=== PATIENT | male | born 1960 | race Caucasian/White ===

== ENCOUNTER 2017-08-23 09:35 | Emergency (ER) | payer OTHER ==
[2017-08-23] MEDS ORDERED: ONDANSETRON HCL/PF 2 MG/ML VIAL IV ONE (10:01)
[2017-08-23] MEDS ORDERED: KETOROLAC TROMETHAMINE 30 MG/ML VIAL IV ONE (10:02)
[2017-08-23] MEDS ORDERED: ONDANSETRON HCL/PF 2 MG/ML VIAL ONE (10:07)
[2017-08-23] MEDS ORDERED: KETOROLAC TROMETHAMINE 30 MG/ML VIAL ONE (10:07)
--- NOTE | 2017-08-23 10:07 | ERNOTE ---
Abdominal HPI - General Chief Complaint: Abdominal Pain Time Seen by Provider: 08/23/17 09:53 Source: patient Exam Limitations: no limitations - Immun/Allergies/Home Medications Immunizatons: IMMUNIZATION HX History of Influenza Vaccine No Hx Pneumococcal Vaccination No Allergies/Adverse Reactions: Allergies No Known Allergies Allergy (Verified 08/23/17 09:42) Home Medications: HOME MEDICATIONS Levothyroxine Sodium [Synthroid] 200 mcg PO DAILY 12/11/14 [Last Taken Unknown] Pantoprazole Sodium [Protonix] 40 mg PO DAILY 07/25/15 [Last Taken Unknown] Ibuprofen [Motrin] 600 mg PO Q6H PRN #40 tab 09/04/15 [Last Taken Unknown] Ranitidine HCl 150 mg PO BID 09/04/15 [Last Taken Unknown] oxyCODONE HCL/ACETAMINOPHEN [Percocet 5 MG/325 MG] 1 tab PO Q4H PRN #10 tab [Last Taken Unknown] - History of Present Illness Narrative: Patient is here for abdominal pain that started three days ago. He has a history of GERD and occasionally has heart burn, but the current pain is worse and more in the lower abdominal. The pain is constant , waxing and waning, worse with coughing and breathing Date (Duration): 08/20/17 Timing: constant Quality: moderate Activities at Onset: none Modifying Factors - (Improves): Present: rest Modifying Factors - (Worsens): Present: breathing, coughing Associated Symptoms: Present: fever/chills, nausea. Absent: diarrhea-gross blood, vomiting, shortness of breath Prior Abdominal Problems: Absent: similar symptoms Review of Systems - Review of Systems Constitutional: Present: fever - subjective ENT: Absent: nose congestion, sore throat Respiratory: Absent: shortness of breath, cough Cardiology: Absent: chest pain Gastrointestinal/Abdominal: Present: See HPI, nausea, diarrhea, abdominal pain. Absent: vomiting Genitourinary: Present: no symptoms reported Musculoskeletal: Absent: back pain Neurological: Absent: headache, weakness, numbness - Patient's Past Medical History Patient History - Medical: Arthritis, Hypothyroidism, Other Patient History - Cardiac/Respiratory: No pertinent hx, Myocardial Infarction Patient History - Cancer: No Hx of Cancer Patient History - Surgical Procedures: Angioplasty, Colonoscopy, T & A, Vasectomy Patient History - Other: None - Social History Living Situations: home Abuse History: No History of abuse Psych History: No pertinent hx Alcohol Use: none Drug Use: none - Immunizations Hx Pneumococcal Vaccination: No History of Influenza Vaccine: No Physical Exam - Physical Exam General Appearance: Present: wd/wn, alert, mild distress Respiratory: Present: no respiratory distress, normal breath sounds, no accessory muscle use, lungs clear Cardiovascular/Chest: Present: regular rate, rhythm, no murmur Gastrointestinal/Abdominal: Present: normal bowel sounds, soft, tenderness - lower abdomen and epigastric, distended. Absent: guarding, rebound, McBurney sign Extremity Exam: Present: no edema Neurological Exam: Present: alert, oriented, normal mood/affect Skin Exam: Present: normal color, warm/dry ED Progress - Results and Orders Patient's Lab Results:: I have reviewed the patient's lab results. - Vital Signs Patient's Vital Signs:: I have reviewed the patient's vital signs. 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 08/23/17 13:10 tolerating contrast 08/23/17 14:45 discussed test results, no diverticulitis offered pain medications, patient wants to go back to work and only wants tylenol, percocet RX if needed later Departure Clinical Impression: Colitis - Departure Disposition: Home self-care Condition: Good Instructions: Colitis Additional Instructions: take the pain medication try a probiotic, if your pain does not improve over the next 2-3 days follow up with your doctor Referrals: Kindra Molina FNP [Primary Care Provider] - Prescriptions: oxyCODONE HCL/ACETAMINOPHEN [Percocet 5 MG/325 MG] 1 tab PO Q4H PRN #10 tab PRN Reason: Pain
[2017-08-23 10:21] LABS: Hematocrit 48.5 % (42.0-52.0); Hemoglobin 16.4 gm/dL (13.5-18.0); Mean Cell Volume 90.5 fl (78-100); Mean Corpuscular Hemoglobin 30.6 pg (27-31); Mean Corpuscular Hgb Conc 33.8 g/dl (32-36); Mean Platelet Volume 9.5 fl (6.0-9.5); Neutrophil # 6.7 K/mm3 (1.3-6.0); Neutrophil % 77.4 % (42-75.0); Platelet Count 231 K/mm3 (150-450); Red Blood Count 5.36 M/mm3 (4.7-6.0); Urine Bilirubin 1 mg/dl (NEGATIVE); Urine Blood Negative /ul (NEGATIVE); Urine Ketone 50 mg/dL (NEGATIVE); Urine Nitrite Negative (NEGATIVE); Urine Protein Negative (NEGATIVE); Urine Specific Gravity 1.025 SP.GR. (1.005-1.030); Urine Urobilinogen Normal (NORMAL); White Blood Count 8.7 K/mm3 (4.0-10.5)
[2017-08-23 10:37] LABS: Albumin * 3.7 gm/dl (3.4-5.0); Anion Gap 14.1 mmol/L (6.8-13.8); BUN/Creatinine Ratio 9.9 (9.0-21.6); Bilirubin, Total 0.8 mg/dL (0.0-1.1); Ca. Corrected For Albumin 8.9 mg/dL (8.4-10.2); Carbon Dioxide 26.1 mmol/L (24-32.6); Potassium 4.2 mmol/L (3.4-4.6); Total Protein 7.4 gm/dL (6.2-8.2)
[2017-08-23 10:40] LABS: Urine Color Yellow
[2017-08-23 10:41] LABS: Urine Appearance Slightly Cloudy; Urine Bacteria TRACE; Urine Mucus Few - 1+; Urine RBC None Seen /hpf (0-5); Urine WBC TRACE /hpf (0-5)
[2017-08-23] MEDS ORDERED: DIATRIZOATE MEGLUMINE, SODIUM 30 ML BTL PO ONE (11:40)
[2017-08-23] MEDS ORDERED: DIATRIZOATE MEGLUMINE, SODIUM 30 ML BTL ONE (11:49)
[2017-08-23 14:08] VITALS: BP 142/85
[2017-08-23] MEDS ORDERED: ACETAMINOPHEN 325 MG TABLET PO ONE (14:46)
[2017-08-23] MEDS ORDERED: ACETAMINOPHEN 325 MG TABLET ONE (14:52)
== END 2017-08-23 15:00 | disposition home or self-care (01) ==
LOC: ER 09:35
DX: K52.9 Noninfective gastroenteritis and colitis, unspecified (principal); E03.9 Hypothyroidism, unspecified; I25.2 Old myocardial infarction
CPT/HCPCS: 36415; 74020; 74177; 80053; 81001; 82150; 83690; 85025; 96374; 96375; 99284; J2405

== ENCOUNTER 2017-09-30 06:28 | Emergency (ER) | payer MEDICAID, OTHER ==
[2017-09-30] MEDS ORDERED: ACETAMINOPHEN 500 MG TABLET PO ONE (06:53)
[2017-09-30] MEDS ORDERED: KETOROLAC TROMETHAMINE 30 MG/ML VIAL IM ONE (06:53)
--- NOTE | 2017-09-30 06:55 | ERNOTE ---
ER Male HPI Date of Service: 09/30/17 Stated Complaint: LEFT HIP OR KIDNEY STONE Time Seen by Provider: 09/30/17 06:54 Source: patient Exam Limitations: no limitations Immunizations: IMMUNIZATION HX Immunizations Up to Date No History of Influenza Vaccine No Hx Pneumococcal Vaccination No Allergies/Adverse Reactions: Allergies No Known Allergies Allergy (Verified 09/30/17 06:42) Home Medications: HOME MEDICATIONS Levothyroxine Sodium [Synthroid] 200 mcg PO DAILY 12/11/14 [Last Taken Unknown] Pantoprazole Sodium [Protonix] 40 mg PO DAILY 07/25/15 [Last Taken Unknown] Ibuprofen [Motrin] 600 mg PO Q6H PRN #40 tab 09/04/15 [Last Taken Unknown] Ranitidine HCl 150 mg PO BID 09/04/15 [Last Taken Unknown] oxyCODONE HCL/ACETAMINOPHEN [Percocet 5 MG/325 MG] 1 tab PO Q4H PRN #10 tab [Last Taken Unknown] Albuterol Sulfate [Ventolin Hfa] 8 gm IH Q4H PRN 09/30/17 [Last Taken Unknown] Lidocaine [Lidoderm 5%] 1 patch TP DAILY PRN #30 patch 09/30/17 [Last Taken Unknown] Symbicort 160-4.5 Mcg Inhaler 09/30/17 [Last Taken Unknown] Tiotropium [place] [Spiriva] 1 cap IH DAILY 09/30/17 [Last Taken Unknown] - History of Present Illness Narrative: 56 year old that has been having left lower back pain since yesterday. The pain does not radiate and there have been similar pain for two years. The pain increases in the middle of attempting to stand, and when fully erect the pain is less. He was able to take 3 oxycodone tablet yesterday and continued to lay carpet down. Denies any dysuria, fever, or chills. There is a history of left great toe numbness that has been present for a few months. No complaints of urinary retention. Date (Duration): 09/30/17 Time (Timing): 06:58 Timing: Present: constant Quality: Present: moderate Onset Location: Present: other - Left lower back Radiation: Present: none Activities at Onset: Present: physical activity Prior Abdominal Problems: Present: none Modifying Factors - (Improves): Present: other - sitting or stadning Modifying Factors - (Worsens): Present: other - rising from a sitting position. Associated Symptoms: Present: denies symptoms Prior Treatment: Present: recently seen Review of Systems - Review of Systems Constitutional: Present: no symptoms reported EYE: Present: no symptoms reported ENT: Present: no symptoms reported Respiratory: Present: no symptoms reported Cardiology: Present: no symptoms reported Gastrointestinal/Abdominal: Present: no symptoms reported Genitourinary: Present: no symptoms reported Musculoskeletal: Present: no symptoms reported Skin: Present: no symptoms reported Neurological: Present: no symptoms reported Endocrine: Present: no symptoms reported Hematologic/Lymphatic: Present: no symptoms reported Psych: Present: no symptoms reported - Patient's Past Medical History Patient History - Medical: Arthritis, Hypothyroidism, Kidney stone, Other Patient History - Cardiac/Respiratory: No pertinent hx, Myocardial Infarction Patient History - Cancer: No Hx of Cancer Patient History - Surgical Procedures: Angioplasty, Colonoscopy, T & A, Vasectomy Patient History - Other: None - Social History Abuse History: No History of abuse Psych History: No pertinent hx Smoking Status: Current every day smoker Have you smoked in the past 12 months: Yes Do you dip or chew tobacco: No - Immunizations Immunizations Up to Date: No Hx Pneumococcal Vaccination: No History of Influenza Vaccine: No Physical Exam - Physical Exam General Appearance: Present: no apparent distress Head Exam: Present: normal inspection Eye Exam: Normal inspection: bilateral, PERRL: bilateral, EOMI: bilateral Ears, Nose, Throat: Present: normal ENT inspection Neck: Present: normal inspection, nontender Respiratory: Present: no respiratory distress Cardiovascular/Chest: Present: regular rate, rhythm Gastrointestinal/Abdominal: Present: nondistended Back Exam: Present: normal inspection, other - Mild tenderness at the left lower back at the musculature.. Absent: vertebral tenderness Neurological Exam: Present: alert, oriented, crayon grader II-XII nml as tested Skin Exam: Present: normal color ED Progress - Results and Orders Patient's Lab Results:: I have reviewed the patient's lab results. - Vital Signs Patient's Vital Signs:: I have reviewed the patient's vital signs. Vital Signs: Vital Signs 09/30/17 06:36 Temperature 36.9 C Pulse Rate 74 Respiratory 18 Rate Blood Pressure 148/82 O2 Sat by Pulse 93 Oximetry - Progress/Reassessment Chief Complaint: Genitourinary Problem Progress:: Improved Progress Note-Subjective: 12/08/17 07:02 Lidoderm patch, Tylenol one gram po and Ketorlac 15 mg IM. Departure Clinical Impression: Acute exacerbation of chronic low back pain - Departure Disposition: Home self-care Condition: Fair Instructions: Chronic Back Pain Print Language: Qatari Additional Instructions: Return to the ED as needed. Referrals: Kindra Molina, JAH [Primary Care Provider] - Prescriptions: Lidocaine [Lidoderm 5%] 1 patch TP DAILY PRN #30 patch PRN Reason: Pain
[2017-09-30] MEDS ORDERED: KETOROLAC TROMETHAMINE 30 MG/ML VIAL ONE (07:05)
[2017-09-30] MEDS ORDERED: LIDOCAINE 1 PATCH ADH..PATCH TP SCH (07:15)
[2017-09-30 07:49] LABS: Urine Appearance Clear; Urine Bacteria None Seen; Urine Bilirubin Negative (NEGATIVE); Urine Blood Negative /ul (NEGATIVE); Urine Color Pale Yellow; Urine Ketone Negative (NEGATIVE); Urine Nitrite Negative (NEGATIVE); Urine Protein Negative (NEGATIVE); Urine RBC None Seen /hpf (0-5); Urine Urobilinogen Normal (NORMAL); Urine WBC None Seen /hpf (0-5); Urine pH 6.5 pH (5.0-7.0)
[2017-09-30 08:31] VITALS: BP 125/77
[2017-09-30] MEDS ORDERED: REMOVE PATCH 1 PATCH PATCH TP SCH (19:30)
== END 2017-09-30 08:12 | disposition home or self-care (01) ==
LOC: ER 06:28
DX: M54.5 Low back pain (principal); G89.29 Other chronic pain; Z87.442 Personal history of urinary calculi; I25.2 Old myocardial infarction; E03.9 Hypothyroidism, unspecified; F17.200 Nicotine dependence, unspecified, uncomplicated